=== PATIENT | female | born 1960 | race Caucasian/White ===

== ENCOUNTER 2020-06-24 20:40 | Observation (INO) ==
--- NOTE | 2020-06-24 20:56 | DR.SOBA ---
HPI Time Seen Time Seen by Provider: 06/24/20 20:56 HPI Comment HPI Comment: PATIENT IS 59YR OLD FEMALE IN ER WITH INCREASING SOB, COUGH AND CONGESTION TIMES 2 DAYS. WORSE TODAY. DENIES CONTACT WITH SICK PATIENT. NO FEVER OR CHEST PAIN. COUGH PRODUCTIVE, YELLOW SPUTUM. Complaints Chief Complaint Doctors Comments: COUGH, CONGESTION AND INCREASING SOB TIMES 2 DAYS COVID-19 Coronavirus risk:travel/contact w/high risk person: No Has patient experienced Coronavirus symptoms: Yes Coronavirus symptoms experienced: Coughing and Shortness of Breath Reviewed Nurses Notes Reviewed: Yes Source History Provided: Patient Mode of Arrival Mode of Arrival: Ambulatory Context Onset:: At Rest PE Risk Factors:: None History of:: None Currently on:: Neither Prehospital Care:: None Modifying Factors Worsens:: Exertion Improves:: Sitting Up Associated Signs and Symptoms Associated Signs and Symptoms: Nasal Congestion If Cough Cough: Productive and Yellow ROS Review of Systems Constitutional: No Symptoms Reported and See HPI; negative Fever, Weakness and Fatigue Eyes: No Symptoms Reported and See HPI ENTM: See HPI, Nose Discharge and Nose Congestion Respiratoy: See HPI, Productive Cough, Moist Cough and Short of Breath; negative Wheezing Cardiovascular: No Symptoms Reported and See HPI; negative Chest Pain and Edema Gastrointestinal/Abdominal: No Symptoms Reported and See HPI; negative Abdominal Pain, Diarrhea and Vomiting Genitourinary: No Symptoms Reported and See HPI; negative Dysuria, Frequency and Hematuria Neurological: See HPI and Headache; negative Weakness and Dizziness Musculoskeletal: No Symptoms Reported and See HPI; negative Back Pain and Muscle Pain Integumentary: No Symptoms Reported and See HPI; negative Change in Color, Rash and Juandice Hematologic/Lymphatic: No Symptoms Reported and See HPI; negative Easy Bruising and Swollen Glands Endocrine: No Symptoms Reported and See HPI; negative Increased Thirst and Increased Urine Psychiatric: No Symptoms Reported and See HPI All Other Systems: Reviewed and Negative PE Vital Signs Vitals: Temperature 98.1 F Pulse Rate [Left Radial] 111 Pulse Rate 107 Respiratory Rate 18 Blood Pressure [Left Arm] 148/84 Blood Pressure 154/99 O2 Sat by Pulse Oximetry 95 General Limitations: No Limitations General Appearance: Alert and In No Apparent Distress Head Head Exam: Normal Inspection and Atraumatic Eyes Eye exam: Normal Appearance and PERRL; negative Scleral Icterus and Conjunctival Injection ENT ENT Exam: Normal Exam, Normal Oropharynx, Normal External Ear Exam and TM's Normal Bilaterally Neck Neck Exam: Normal Inspection and Trachea Midline; negative Tenderness and Lymphadenopathy Chest Chest Inspection: Normal Inspection and Symmetric Chest Wall Rise; negative Tenderness Respiratory Respiratory Exam: Normal Lung Sounds Bilat; negative Accessory Muscle Use, Chest Wall Tenderness and Respiratory Distress Respiratory Exam: Bilateral: Rhonchi and Lower: Rhonchi Cardiovascular Cardiovascular Exam: Regular Rate, Normal Rhythm and Normal Heart Sounds; negative Systolic Murmur and Diastolic Murmur Abdominal Exam Abdominal Exam: Normal Inspection, Normal Bowel Sounds and Soft; negative Tenderness Extremities Extremities Exam: Normal Inspection and Normal Capillary Refill; negative Te nderness, Edema and Calf Tenderness Back Back Exam: Normal Inspection; negative (R) CVA Tenderness and (L) CVA Tenderness Neurologic Neurological Exam: Alert, Oriented X3 and CN II-XII Intact; negative Motor Sensory Deficit Psychiatric Psychiatric Exam: Normal Affect and Normal Mood Skin Skin Exam: Warm, Dry, Intact and Normal Color MDM Differential Diagnosis Differential Diagnosis: Bronchitis, Pneumonia, Pneumothorax, Respiratory Insufficiency, Sinusitis and URI COURSE Treatment Treatment: SEE ORDERS. DUO NEB, SOLUMEDROL 125MG IV, NS 100CC/HR AND FORTAZ 1GM IVPB. Education/Counseling Education/Counseling: Patient Educated On: Diagnosis and Needs for Follow Up ROR Labs Reviewed Laboratory Results Reviewed?: Yes Result Diagrams: 06/27/20 05:53 06/27/20 05:53 Laboratory: WBC 6.3 X10^3/uL (3.6-10.0) 06/24/20 21:09 RBC 3.31 X10^6/uL (3.5-5.4) L 06/24/20 21:09 Hgb 9.5 g/dL (12.0-16.0) L 06/24/20 21:09 Hct 30.1 % (36.0-47.0) L 06/24/20 21:09 MCV 90.9 fL (80.0-100.0) 06/24/20 21:09 MCH 28.9 pg (27.0-34.0) 06/24/20 21:09 MCHC 31.8 g/dL (33.0-35.0) L 06/24/20 21:09 RDW 15.4 % (11.6-16.5) 06/24/20 21:09 Plt Count 267 X10^3/uL (150.0-450.0) 06/24/20 21:09 MPV 6.1 fL (7.4-11.0) L 06/24/20 21:09 Neut % (Auto) 55.1 % (42.0-75.0) 06/24/20 21:09 Lymph % (Auto) 27.9 % (21.0-51.0) 06/24/20 21:09 [place] % (Auto) 10.1 % (0.0-13.0) 06/24/20 21:09 Eos % (Auto) 6.5 % (0.9-2.9) H 06/24/20 21:09 Baso % (Auto) 0.4 % (0.2-1.0) 06/24/20 21:09 Neut # (Auto) 3.5 x10^3/uL (2.2-4.8) 06/24/20 21:09 Lymph # (Auto) 1.8 X10^3/uL (1.3-2.9) 06/24/20 21:09 [place] # (Auto) 0.6 x10^3/uL (0.3-0.8) 06/24/20 21:09 Eos # (Auto) 0.4 x10^3/uL (0.0-0.2) H 06/24/20 21:09 Baso # (Auto) 0.0 X10^3/uL (0.0-0.1) 06/24/20 21:09 Absolute Nucleated RBC 0.1 /100WBC 06/24/20 21:09 Sample Site Lr 06/24/20 23:19 ABG pH 7.360 (7.35-7.45) 06/24/20 23:19 ABG pCO2 53.0 mmHg (35.0-45.0) H* 06/24/20 23:19 ABG pO2 53.0 mmHg (80.0-100.0) L 06/24/20 23:19 ABG HCO3 29.9 mmol/L (22-26) H 06/24/20 23:19 ABG O2 Saturation 86.0 % (90-100) L 06/24/20 23:19 ABG Base Excess 3.4 mmol/L (-2.0-2.0) H 06/24/20 23:19 [place]erson Test Pos 03/18/21 23:19 A-a Gradient 80.0 mmHg 06/24/20 23:19 FiO2 28 06/24/20 23:19 Blood Gas Comments Pina well ae 06/24/20 23:19 Sodium 142 mmol/L (136-145) 06/24/20 21:09 Corrected Sodium TNP 06/24/20 21:09 Potassium 5.6 mmol/L (3.5-5.1) H 06/24/20 21:09 Chloride 106 mmol/L (98-107) 06/24/20 21:09 Carbon Dioxide 30.5 mmol/L (21-32) 06/24/20 21:09 BUN 17 mg/dL (7-18) 06/24/20 21:09 Creatinine 1.60 mg/dL (0.55-1.02) H 06/24/20 21:09 Est GFR (MDRD) Af Amer 42 (>60) L 06/24/20 21:09 Est GFR (MDRD) Non-Af 35 (>60) L 06/24/20 21:09 Glucose 100 mg/dL (65-99) H 06/24/20 21:09 Calcium 9.3 mg/dL (8.5-10.1) 06/24/20 21:09 Corrected Calcium 10.2 mg/dL (8.5-10.1) H 06/24/20 21:09 Total Bilirubin 0.20 mg/dL (0.2-1.0) 06/24/20 21:09 AST 17 Units/L (15-37) 06/24/20 21:09 ALT 29 Units/L (12-78) 06/24/20 21:09 Alkaline Phosphatase 150 Units/L (46-116) H 06/24/20 21:09 Creatine Kinase 169 Units/L (26-192) 06/24/20 21:09 CK-MB (CK-2) 1.6 ng/mL (0-4.0) 06/24/20 21:09 CK/CKMB % Calc 1.0 % (<4) 06/24/20 21:09 Troponin I < 0.02 ng/mL (0-1.5) 06/24/20 21:09 B-Natriuretic Peptide 125 pg/mL (0-79) H 06/24/20 21:09 Total Protein 6.1 g/dL (6.4-8.2) L 06/24/20 21:09 Albumin 2.9 g/dL (3.4-5.0) L 06/24/20 21:09 Globulin 3.2 g/dL (2.5-4.5) 06/24/20 21:09 Albumin/Globulin Ratio 0.9 Ratio (1.1-2.1) L 06/24/20 21:09 Specimen Type Clean catch urine 06/25/20 01:15 Urine Color Straw (YELLOW) 06/25/20 01:15 Urine Appearance Clear (CLEAR) 06/25/20 01:15 Urine pH 7.0 (5.0 - 8.0) 06/25/20 01:15 Ur Specific [place] 1.010 (1.000-1.030) 06/25/20 01:15 Urine Protein Negative (NEGATIVE) 06/25/20 01:15 Urine Glucose (UA) Negative (NEGATIVE) 06/25/20 01:15 Urine Ketones Negative (NEGATIVE) 06/25/20 01:15 Urine Occult Blood 1+ (NEGATIVE) 06/25/20 01:15 Urine Nitrite Negative (NEGATIVE) 06/25/20 01:15 Urine Bilirubin Negative (NEGATIVE) 06/25/20 01:15 Urine Urobilinogen Normal (NORMAL) 06/25/20 01:15 Ur Leukocyte Esterase Negative (NEGATIVE) 06/25/20 01:15 Urine RBC None seen /HPF (0-3) 06/25/20 01:15 Urine WBC None seen /HPF (0-5) 06/25/20 01:15 Ur Squamous Epith Cells Few /HPF (NEGATIVE) 06/25/20 01:15 Urine Bacteria Trace /HPF (NEGATIVE) 06/25/20 01:15 Ur Culture Indicated? No/not indicated 06/25/20 01:15 SARS CoV-2 RNA Rapid RAMAKRISHNA Negative (NEGATIVE) 06/24/20 23:42 XRAY XRAY Interpreted by: Radiologist (REPORT NOTED AND DISCUSSED WITH PATIENT.) and Self EKG Rate: 109 [place]: Normal Rhythm: ST Block: None Hypertrophy: None ST: Old, Ant and Infarct Opioid Opioid Risk Tool Total: 0 Total Score Risk Category: Low Risk Copyright: Danie HERNÁNDEZ predicting aberrant behaviors Diagnosis Discharge Problem: Acute exacerbation of chronic obstructive pulmonary disease, Acute respiratory distress, SOBOE (shortness of breath on exertion) Instructions Instructions: Shortness of Breath, Adult, [id number] Chronic Obstructive Pulmonary Disease Exacerbation Acute Bronchitis, Adult, [id number] Levofloxacin tablets Methylprednisolone tablets Forms: Excuse From Work or School Precautions for COVID19 Patient Portal Social Distancing
[2020-06-24] MEDS ORDERED: DUONEB 0.5 MG/3 MG (3 mL) NEB ONE ×2 (20:57→20:59)
[2020-06-24] MEDS ORDERED: SOLU-Medrol 125 MG VIAL IVP ONE (20:59)
[2020-06-24 21:02] VITALS: BMI 31.8
[2020-06-24] MEDS ORDERED: SOLU-Medrol 125 MG VIAL ONE (21:06)
[2020-06-24 21:22] LABS: BASOPHILS % (AUTO) 0.4 % (0.2-1.0); EOSINOPHILS # (AUTO) 0.4 x10^3/uL (0.0-0.2); EOSINOPHILS % (AUTO) 6.5 % (0.9-2.9); HEMATOCRIT 30.1 % (36.0-47.0); HEMOGLOBIN 9.5 g/dL (12.0-16.0); LYMPHOCYTES # (AUTO) 1.8 X10^3/uL (1.3-2.9); LYMPHOCYTES % (AUTO) 27.9 % (21.0-51.0); MEAN CORPUSCULAR HEMOGLOBIN 28.9 pg (27.0-34.0); MEAN CORPUSCULAR HGB CONC 31.8 g/dL (33.0-35.0); MEAN CORPUSCULAR VOLUME 90.9 fL (80.0-100.0); MEAN PLATELET VOLUME 6.1 fL (7.4-11.0); MONOCYTES # (AUTO) 0.6 x10^3/uL (0.3-0.8); MONOCYTES % (AUTO) 10.1 % (0.0-13.0); NEUTROPHILS # (AUTO) 3.5 x10^3/uL (2.2-4.8); NEUTROPHILS % (AUTO) 55.1 % (42.0-75.0); PLATELET COUNT 267 X10^3/uL (150.0-450.0); RED BLOOD COUNT 3.31 X10^6/uL (3.5-5.4); RED CELL DISTRIBUTION WIDTH 15.4 % (11.6-16.5); WHITE BLOOD COUNT 6.3 X10^3/uL (3.6-10.0)
[2020-06-24 21:38] LABS: BLOOD UREA NITROGEN 17 mg/dL (7-18); CALCIUM 9.3 mg/dL (8.5-10.1); CARBON DIOXIDE 30.5 mmol/L (21-32); CHLORIDE 106 mmol/L (98-107); SODIUM 142 mmol/L (136-145); TROPONIN I < 0.02 ng/mL (0-1.5); eGFR NON BLACK RACES 35 (>60)
[2020-06-24 21:42] LABS: ALANINE AMINOTRANSFERASE 29 Units/L (12-78); ALBUMIN 2.9 g/dL (3.4-5.0); ALKALINE PHOSPHATASE 150 Units/L (46-116); ASPARTATE AMINO TRANSFERASE 17 Units/L (15-37); COR CA(FOR HYPOALB) 10.2 mg/dL (8.5-10.1); CREATINE KINASE 169 Units/L (26-192); CREATINE KINASE MB 1.6 ng/mL (0-4.0); TOTAL PROTEIN 6.1 g/dL (6.4-8.2)
--- NOTE | 2020-06-24 23:01 | RAD ---
PROCEDURE: Chest X-ray 1 View .HISTORY: Short of breath and wheezing.TECHNIQUE: PA view.COMPARISON: 04/14/2019.TECHNICAL QUALITY: Satisfactory .FINDINGS:Normal size heart .Mediastinum and hilar regions show no masses or lymphadenopathy .Normal central vascularity .No pulmonary consolidation, masses, pleural fluid, or pneumothorax .No acute bony abnormality .IMPRESSION:No active cardiopulmonary disease .Electronically signed by: Aman Hernandez (Jun 24, 2020 22:59:28)
[2020-06-24 23:25] LABS: ABG ALLEN TEST POS; ABG BASE EXCESS 3.4 mmol/L (-2.0-2.0); ABG HCO3 29.9 mmol/L (22-26)
[2020-06-25] MEDS ORDERED: DUONEB 0.5 MG/3 MG (3 mL) NEB ONE ×2 (00:59→04:29)
[2020-06-25] MEDS ORDERED: FORTAZ or TAZICEF VIAL INJ 1 G in NS 100 ML IV + SPIKE MINIBAG* 100 ML IV ONE (01:00)
[2020-06-25] MEDS ORDERED: SALINE 3% 15 ML NEB TX ONE (01:06)
[2020-06-25] MEDS ORDERED: SALINE 3% 15 ML NEB TX NEB ONE (01:10)
[2020-06-25] MEDS ORDERED: FORTAZ or TAZICEF VIAL INJ ONE (01:12)
[2020-06-25] MEDS ORDERED: NS 250 ML IV 250 ML IV ONE (01:12)
[2020-06-25] MEDS ORDERED: NS 100 ML IV + SPIKE MINIBAG* 100 ML IV ONE (01:16)
[2020-06-25 01:49] LABS: BILIRUBIN,URINE NEGATIVE (NEGATIVE); BLOOD/HEMOGLOBIN,URINE 1+ (NEGATIVE); GLUCOSE, URINE NEGATIVE (NEGATIVE); KETONES,URINE NEGATIVE (NEGATIVE); LEUKOCYTE ESTERASE ,URINE NEGATIVE (NEGATIVE); NITRITES,URINE NEGATIVE (NEGATIVE); PROTEIN,URINE NEGATIVE (NEGATIVE); UROBILINOGEN,URINE NORMAL (NORMAL)
[2020-06-25 02:07] LABS: APPEARANCE,URINE CLEAR (CLEAR); BACTERIA,URINE TRACE /HPF (NEGATIVE); COLOR,URINE STRAW (YELLOW); RBC,URINE NONE SEEN /HPF (0-3); SQUAMOUS EPITHELIAL CELL,UR FEW /HPF (NEGATIVE)
[2020-06-25] MEDS: DUONEB 0.5 MG/3 MG (3 mL) NEB SCH ×5 (04:43→20:57)
[2020-06-25] MEDS ORDERED: SOLU-Medrol 40 MG VIAL ONE (05:21)
[2020-06-25] MEDS ORDERED: SOLU-Medrol 40 MG VIAL IVP SCH (06:00)
[2020-06-25] MEDS ORDERED: PERCOCET TAB 5/325 MG PO SCH (08:00)
[2020-06-25] MEDS: PULMICORT NEB TX 0.5 MG NEB SCH ×2 (08:41→20:57)
[2020-06-25 08:49] LABS: ABG ALLEN TEST POS; ABG BASE EXCESS 4.3 mmol/L (-2.0-2.0); ABG HCO3 29.8 mmol/L (22-26)
[2020-06-25 08:51] LABS: BASOPHILS % (AUTO) 0.2 % (0.2-1.0); EOSINOPHILS % (AUTO) 0.1 % (0.9-2.9); HEMATOCRIT 29.4 % (36.0-47.0); HEMOGLOBIN 9.6 g/dL (12.0-16.0); LYMPHOCYTES # (AUTO) 0.6 X10^3/uL (1.3-2.9); MEAN CORPUSCULAR HEMOGLOBIN 29.5 pg (27.0-34.0); MEAN CORPUSCULAR HGB CONC 32.6 g/dL (33.0-35.0); MEAN CORPUSCULAR VOLUME 90.6 fL (80.0-100.0); MEAN PLATELET VOLUME 6.1 fL (7.4-11.0); MONOCYTES # (AUTO) 0 x10^3/uL (0.3-0.8); MONOCYTES % (AUTO) 0.6 % (0.0-13.0); NEUTROPHILS # (AUTO) 4.4 x10^3/uL (2.2-4.8); NEUTROPHILS % (AUTO) 87.1 % (42.0-75.0); PLATELET COUNT 274 X10^3/uL (150.0-450.0); RED BLOOD COUNT 3.24 X10^6/uL (3.5-5.4); RED CELL DISTRIBUTION WIDTH 15.4 % (11.6-16.5); WHITE BLOOD COUNT 5.1 X10^3/uL (3.6-10.0)
[2020-06-25 08:56] LABS: CALCIUM 9.2 mg/dL (8.5-10.1); CARBON DIOXIDE 29.7 mmol/L (21-32); CREATININE 1.56 mg/dL (0.55-1.02)
[2020-06-25] MEDS ORDERED: LASIX PO SCH (09:00)
[2020-06-25] MEDS ORDERED: KLONOPIN TAB 1 MG PO SCH (09:00)
--- NOTE | 2020-06-25 09:15 | DR.H&P ---
H&P History & Physical for Day of: H&P Date: 06/25/20 Chief Complaint Chief Complaint: shortness of breath, weakness Allergies Allergies Allergy/AdvReac Type Severity Reaction Status Date / Time No Known Drug Allergies Allergy Verified 06/25/20 00:43 History of Present Illness History of Present Illness: Ms. Vazquez is a 59 y/o female with a PMH of chronic anxiety, back pain, COPD and hypothyroidism presents with worsening dyspnea and cough. She states her shortness of breath had been worsening for the past few days. She uses 2L O2 at night and states she was checking her pulse OX and it had been in the 80s. She denies fever or chills. Denies body aches. She has dry cough. Denies GI Sx. No sick contact at home, no known exposure to COVID. Labs: WBC 5.1 Hgb 9.6 K: 5.6 BUN: 17 Cr: 1.56 (1.60) Na 141 Cl 105 Trop (-) BNP 125 CXR: no acute cardiopulmonary process ABG: suggestive of hypoxia and hypercapnia COVID-19 negative Patient received solumedrol, dose of Fortaz and duonebs. Plan: will increase solumedrol to 60 mg q8H, add Levaquin. Continue duonebs and pulmicort. Wean O2 as tolerated to keep sats > 92%. Add IS. Resume home medic ations. Add Kayexalate. Monitor AM labs and imaging. Past Medical History Past Medical History: Anxiety, Arthritis, COPD and Hypothyroidism Past Surgical History Surgical History: Appendectomy, Ortho Surgery, Thyroidectomy and Other Family History Family Medical History: Diabetes Mellitus and Hypertension Social History Does patient currently use any type of tobacco product: No Have you used tobacco products in the last 12 months: Yes Type of Tobacco Use: Cigarettes How many years tobacco product used: 35 Does any household member use tobacco: No Alcohol Use: Occasionally Drug Use: None Prescription drug monitoring program results: PDMP reviewed and no concerns identified Medications Home Medications: No Known Drug Allergies Allergy (Verified 06/25/20 00:43) CONTINUE taking the following medications albuterol sulfate 1 puff INHALATION Q4HR PRN 06/25/20 [History] amitriptyline 100 mg PO BID 06/25/20 [History] buspirone 15 mg PO BID 06/25/20 [History] calcium phos,dibas-vitamin D3 [Vitamin D (with calcium)] 1 tab PO DAILY 06/25/20 [History] clonazepam 1 mg PO BID 06/25/20 [History] furosemide 40 mg PO DAILY 06/25/20 [History] ipratropium-albuterol [Combivent Respimat] 1 puff INHALATION BID 06/25/20 [History] levothyroxine 150 mcg PO DAILY 06/25/20 [History] oxycodone-acetaminophen [Percocet] 1 tab PO TID 06/25/20 [History] tizanidine [Zanaflex] 4 mg PO HS 06/25/20 [History] Labs Result Diagrams: 06/25/20 08:39 06/25/20 08:39 Labs: 06/25/20 03:46 Sputum - Expectorated Sputum - Final Laboratory WBC 5.1 X10^3/uL (3.6-10.0) 06/25/20 08:39 RBC 3.24 X10^6/uL (3.5-5.4) L 06/25/20 08:39 Hgb 9.6 g/dL (12.0-16.0) L 06/25/20 08:39 Hct 29.4 % (36.0-47.0) L 06/25/20 08:39 MCV 90.6 fL (80.0-100.0) 06/25/20 08:39 MCH 29.5 pg (27.0-34.0) 06/25/20 08:39 MCHC 32.6 g/dL (33.0-35.0) L 06/25/20 08:39 RDW 15.4 % (11.6-16.5) 06/25/20 08:39 Plt Count 274 X10^3/uL (150.0-450.0) 06/25/20 08:39 MPV 6.1 fL (7.4-11.0) L 06/25/20 08:39 Neut % (Auto) 87.1 % (42.0-75.0) H 06/25/20 08:39 Lymph % (Auto) 12.0 % (21.0-51.0) L 06/25/20 08:39 [place] % (Auto) 0.6 % (0.0-13.0) 06/25/20 08:39 Eos % (Auto) 0.1 % (0.9-2.9) L 06/25/20 08:39 Baso % (Auto) 0.2 % (0.2-1.0) 06/25/20 08:39 Neut # (Auto) 4.4 x10^3/uL (2.2-4.8) 06/25/20 08:39 Lymph # (Auto) 0.6 X10^3/uL (1.3-2.9) L 06/25/20 08:39 [place] # (Auto) 0 x10^3/uL (0.3-0.8) L 06/25/20 08:39 Eos # (Auto) 0.0 x10^3/uL (0.0-0.2) 06/25/20 08:39 Baso # (Auto) 0.0 X10^3/uL (0.0-0.1) 06/25/20 08:39 Absolute Nucleated RBC 0.1 /100WBC 06/25/20 08:39 Sample Site [place] 06/25/20 08:40 ABG pH 7.410 (7.35-7.45) 06/25/20 08:40 ABG pCO2 47.0 mmHg (35.0-45.0) H 06/25/20 08:40 ABG pO2 82.0 mmHg (80.0-100.0) 06/25/20 08:40 ABG HCO3 29.8 mmol/L (22-26) H 06/25/20 08:40 ABG O2 Saturation 96.0 % (90-100) 06/25/20 08:40 ABG Base Excess 4.3 mmol/L (-2.0-2.0) H 06/25/20 08:40 [place] Test Pos 06/25/20 08:40 A-a Gradient 59.0 mmHg 06/25/20 08:40 FiO2 28.0 06/25/20 08:40 Blood Gas Comments Pina well ah 06/25/20 08:40 Sodium 141 mmol/L (136-145) 06/25/20 08:39 Corrected Sodium 143 mmol/L (136-145) 06/25/20 08:39 Potassium 5.6 mmol/L (3.5-5.1) H 06/25/20 08:39 Chloride 105 mmol/L (98-107) 06/25/20 08:39 Carbon Dioxide 29.7 mmol/L (21-32) 06/25/20 08:39 BUN 17 mg/dL (7-18) 06/25/20 08:39 Creatinine 1.56 mg/dL (0.55-1.02) H 06/25/20 08:39 Est GFR (MDRD) Af Amer 44 (>60) L 06/25/20 08:39 Est GFR (MDRD) Non-Af 36 (>60) L 06/25/20 08:39 Glucose 188 mg/dL (65-99) H 06/25/20 08:39 Calcium 9.2 mg/dL (8.5-10.1) 06/25/20 08:39 Corrected Calcium 10.2 mg/dL (8.5-10.1) H 06/24/20 21:09 Total Bilirubin 0.20 mg/dL (0.2-1.0) 06/24/20 21:09 AST 17 Units/L (15-37) 06/24/20 21:09 ALT 29 Units/L (12-78) 06/24/20 21:09 Alkaline Phosphatase 150 Units/L (46-116) H 06/24/20 21:09 Creatine Kinase 169 Units/L (26-192) 06/24/20 21:09 CK-MB (CK-2) 1.6 ng/mL (0-4.0) 06/24/20 21:09 CK/CKMB % Calc 1.0 % (<4) 06/24/20 21:09 Troponin I < 0.02 ng/mL (0-1.5) 06/24/20 21:09 B-Natriuretic Peptide 125 pg/mL (0-79) H 06/24/20 21:09 Total Protein 6.1 g/dL (6.4-8.2) L 06/24/20 21:09 Albumin 2.9 g/dL (3.4-5.0) L 06/24/20 21:09 Globulin 3.2 g/dL (2.5-4.5) 06/24/20 21:09 Albumin/Globulin Ratio 0.9 Ratio (1.1-2.1) L 06/24/20 21:09 Specimen Type Clean catch urine 06/25/20 01:15 Urine Color Straw (YELLOW) 06/25/20 01:15 Urine Appearance Clear (CLEAR) 06/25/20 01:15 Urine pH 7.0 (5.0 - 8.0) 06/25/20 01:15 Ur Specific [place] 1.010 (1.000-1.030) 06/25/20 01:15 Urine Protein Negative (NEGATIVE) 06/25/20 01:15 Urine Glucose (UA) Negative (NEGATIVE) 06/25/20 01:15 Urine Ketones Negative (NEGATIVE) 06/25/20 01:15 Urine Occult Blood 1+ (NEGATIVE) 06/25/20 01:15 Urine Nitrite Negative (NEGATIVE) 06/25/20 01:15 Urine Bilirubin Negative (NEGATIVE) 06/25/20 01:15 Urine Urobilinogen Normal (NORMAL) 06/25/20 01:15 Ur Leukocyte Esterase Negative (NEGATIVE) 06/25/20 01:15 Urine RBC None seen /HPF (0-3) 06/25/20 01:15 Urine WBC None seen /HPF (0-5) 06/25/20 01:15 Ur Squamous Epith Cells Few /HPF (NEGATIVE) 06/25/20 01:15 Urine Bacteria Trace /HPF (NEGATIVE) 06/25/20 01:15 Ur Culture Indicated? No/not indicated 06/25/20 01:15 SARS CoV-2 RNA Rapid RAMAKRISHNA Negative (NEGATIVE) 06/24/20 23:42 Review of Systems Constitutional: Weakness and Malaise Eyes: No Symptoms Reported ENT: No Symptoms Reported Respiratory: Cough, Dry, Shortness of Breath, SOB with Excertion and Wheezing Cardiovascular: No Symptoms Reported Gastrointestinal: No Symptoms Reported Genitourinary: No Symptoms Reported Musculoskeletal: Back Pain Skin: No Symptoms Reported Neurological: No Symptoms Reported Physical Exam Vital Signs: Temperature 97.7 F Pulse Rate [Left Radial] 83 Pulse Rate 108 Respiratory Rate 20 Blood Pressure [Left Arm] 138/85 Blood Pressure 154/99 O2 Sat by Pulse Oximetry 97 Oriented: Normal Eyes: Normal Ear: Normal Nose: Normal Throat: Normal Respiratory: Rhonchi Throughout and Wheezes Throughout Cardiovascular: Normal Auscultation: Bowel Sounds: Normal Palpation: Normal Tenderness: Normal Skin: Normal Musculoskeletal: Back:Thoracic, Back:Lumbar and Back:Paraspinous Psychiatric: Anxiety Mood Description: Calm Affect: Normal Speech Pattern: Clear and Appropriate Assessment/Plan (1) Acute respiratory failure with hypoxia and hypercapnia: Status: Acute (2) COPD exacerbation: Status: Acute (3) Hyperkalemia: Status: Acute (4) Anxiety: Status: Acute (5) DDD (degenerative disc disease): Qualifiers: Spinal region: lumbosacral Qualified Code(s): M51.37 - Other interve rtebral disc degeneration, lumbosacral region Status: Acute (6) CKD (chronic kidney disease): Qualifiers: Chronic kidney disease stage: unspecified stage Qualified Code(s): N18.9 - Chronic kidney disease, unspecified Status: Acute Review H&P Reviewed: Yes Patient was examined?: Yes
[2020-06-25] MEDS: BUSPAR PO SCH ×2 (09:39→20:59)
[2020-06-25] MEDS: CITRACAL + VITAMIN D PO SCH (09:40)
[2020-06-25] MEDS: ELAVIL PO SCH ×2 (09:41→20:59)
[2020-06-25] MEDS: LEVAQUIN PREMIX IV 750 MG 750 MG/150 ML BAG IV SCH (09:42)
[2020-06-25] MEDS: SOLU-Medrol 40 MG VIAL IVP SCH ×3 (09:48→20:59)
[2020-06-25] MEDS: SYNTHROID 150 mcg TAB PO SCH (09:51)
[2020-06-25] MEDS: PERCOCET TAB 5/325 MG PO PRN ×2 (09:53→21:00)
[2020-06-25] MEDS: KAYEXALATE SUSP PO SCH ×2 (10:00→21:00)
[2020-06-25] MEDS ORDERED: NS 1000 ML 1,000 ML IV SCH (10:00)
[2020-06-25] MEDS: LASIX PO SCH (11:00)
[2020-06-25] MEDS: KLONOPIN TAB 1 MG PO PRN ×2 (11:46→23:57)
[2020-06-25] MEDS: ZANAFLEX PO SCH (20:59)
[2020-06-26] MEDS: DUONEB 0.5 MG/3 MG (3 mL) NEB SCH ×6 (00:15→20:25)
[2020-06-26] MEDS: SOLU-Medrol 40 MG VIAL IVP SCH ×3 (05:19→21:44)
[2020-06-26] MEDS: PERCOCET TAB 5/325 MG PO PRN ×2 (05:19→20:33)
[2020-06-26 06:05] LABS: CALCIUM 9.4 mg/dL (8.5-10.1); CARBON DIOXIDE 28.8 mmol/L (21-32); CREATININE 1.61 mg/dL (0.55-1.02)
--- NOTE | 2020-06-26 06:05 | RAD ---
History: [Chest pain and dyspnea].Exam: Single portable view of the chest.Comparison: Chest radiograph dated July 15, 2018.Findings: The trachea is [midline]. The cardiomediastinal silhouette is [within normal limits]. There is [no evidence for CHF or pulmonary edema]. [There is no pneumothorax or mediastinal shift. The lungs are clear without consolidation, effusion, or pneumothorax]. The chest is hyperinflated with an increased AP dimension of the chest, diaphragmatic flattening, and central interstitial changes which would be compatible with changes of obstructive airways disease. Pulmonary arteries appear enlarged, unchanged from prior. No acute cardiopulmonary changes are seen. [No acute bony abnormalities are seen].Impression:1. No acute cardiopulmonary changes seen.2. Findings of obstructive airways disease.Electronically signed by: JOANN GEIGER III (Jun 26, 2020 06:03:32)
[2020-06-26 06:19] LABS: BASOPHILS % (AUTO) 0.2 % (0.2-1.0); HEMATOCRIT 28.8 % (36.0-47.0); HEMOGLOBIN 9.6 g/dL (12.0-16.0); LYMPHOCYTES # (AUTO) 0.7 X10^3/uL (1.3-2.9); LYMPHOCYTES % (AUTO) 8.3 % (21.0-51.0); MEAN CORPUSCULAR HEMOGLOBIN 31.6 pg (27.0-34.0); MEAN CORPUSCULAR HGB CONC 33.5 g/dL (33.0-35.0); MEAN CORPUSCULAR VOLUME 94.5 fL (80.0-100.0); MEAN PLATELET VOLUME 6.4 fL (7.4-11.0); MONOCYTES # (AUTO) 0.3 x10^3/uL (0.3-0.8); MONOCYTES % (AUTO) 3.9 % (0.0-13.0); NEUTROPHILS # (AUTO) 7.1 x10^3/uL (2.2-4.8); NEUTROPHILS % (AUTO) 87.6 % (42.0-75.0); PLATELET COUNT 289 X10^3/uL (150.0-450.0); RED BLOOD COUNT 3.05 X10^6/uL (3.5-5.4); RED CELL DISTRIBUTION WIDTH 15.3 % (11.6-16.5); WHITE BLOOD COUNT 8.1 X10^3/uL (3.6-10.0)
[2020-06-26] MEDS: PULMICORT NEB TX 0.5 MG NEB SCH ×2 (09:00→20:25)
[2020-06-26] MEDS: CITRACAL + VITAMIN D PO SCH (09:02)
[2020-06-26] MEDS: KAYEXALATE SUSP PO SCH ×2 (09:02→21:43)
[2020-06-26] MEDS: SYNTHROID 150 mcg TAB PO SCH (09:03)
[2020-06-26] MEDS: BUSPAR PO SCH ×2 (09:03→20:32)
[2020-06-26] MEDS: LASIX PO SCH (09:03)
[2020-06-26] MEDS: ELAVIL PO SCH ×2 (09:04→20:31)
[2020-06-26] MEDS: ZANAFLEX PO SCH (20:32)
[2020-06-26] MEDS: KLONOPIN TAB 1 MG PO PRN (20:33)
[2020-06-27] MEDS: DUONEB 0.5 MG/3 MG (3 mL) NEB SCH ×3 (00:03→08:58)
[2020-06-27] MEDS: SOLU-Medrol 40 MG VIAL IVP SCH (05:05)
[2020-06-27] MEDS: PERCOCET TAB 5/325 MG PO PRN (05:24)
[2020-06-27 06:13] LABS: BASOPHILS % (AUTO) 0.1 % (0.2-1.0); HEMATOCRIT 28.4 % (36.0-47.0); HEMOGLOBIN 9.3 g/dL (12.0-16.0); LYMPHOCYTES # (AUTO) 0.9 X10^3/uL (1.3-2.9); LYMPHOCYTES % (AUTO) 11.3 % (21.0-51.0); MEAN CORPUSCULAR HEMOGLOBIN 29.9 pg (27.0-34.0); MEAN CORPUSCULAR HGB CONC 32.9 g/dL (33.0-35.0); MEAN CORPUSCULAR VOLUME 90.8 fL (80.0-100.0); MEAN PLATELET VOLUME 6.2 fL (7.4-11.0); MONOCYTES # (AUTO) 0.3 x10^3/uL (0.3-0.8); MONOCYTES % (AUTO) 3.3 % (0.0-13.0); NEUTROPHILS # (AUTO) 7.1 x10^3/uL (2.2-4.8); NEUTROPHILS % (AUTO) 85.3 % (42.0-75.0); PLATELET COUNT 305 X10^3/uL (150.0-450.0); RED BLOOD COUNT 3.12 X10^6/uL (3.5-5.4); RED CELL DISTRIBUTION WIDTH 14.8 % (11.6-16.5); WHITE BLOOD COUNT 8.3 X10^3/uL (3.6-10.0)
[2020-06-27 06:22] LABS: CALCIUM 9.2 mg/dL (8.5-10.1); CARBON DIOXIDE 27.9 mmol/L (21-32); CREATININE 1.66 mg/dL (0.55-1.02)
[2020-06-27 06:44] LABS: BAND NEUTROPHILS % 3 % (0-10)
[2020-06-27 06:45] LABS: PLATELET MORPHOLOGY COMMENT NORMAL (NORMAL)
[2020-06-27] MEDS: LEVAQUIN PREMIX IV 750 MG 750 MG/150 ML BAG IV SCH (08:16)
[2020-06-27] MEDS: ELAVIL PO SCH (08:19)
[2020-06-27] MEDS: BUSPAR PO SCH (08:20)
[2020-06-27] MEDS: SYNTHROID 150 mcg TAB PO SCH (08:20)
[2020-06-27] MEDS: CITRACAL + VITAMIN D PO SCH (08:24)
[2020-06-27] MEDS: LASIX PO SCH (08:24)
[2020-06-27] MEDS: PULMICORT NEB TX 0.5 MG NEB SCH (08:58)
[2020-06-27 09:44] VITALS: BP 159/88
--- NOTE | 2020-07-21 10:12 | PCM.PROG ---
Progress Note - Progress Note for Day of Date of Exam: 06/26/20 - Subjective Subjective: IS BEING TREATED FOR ACUTE RESPIRATORY FAILURE WITH HYPOXIA AND HYPERCAPNIA, COPD EXACERBATION, HYPERKALEMIA. SHE HAS A PMH OF ANXIETY, DDD, CKD, AND HYPOTHYROIDISM. TODAY, SHE IS ALERT AND ORIENTED, LYING IN BED ON MORNING ROUNDS. SHE CONTINUES WITH COMPLAINTS OF SHORNTESS OF BREATH AND A PRODUCTIVE COUGH. SHE DOES REPORT SLIGHT IMPROVEMENT SINCE ADMISSION. SHE IS CURRENTLY UTILIZING OXYGEN VIA NASAL CANNULA AT 2 LITERS/MINUTE. ON EXAMINATION, HEART IS REGULAR IN RATE AND RHYTHM. BILATERAL LUNGS ARE NOTED WITH WHEEZING AND RHONCHI THROUGHOUT. ABDOMEN IS ROUND, SOFT, AND NON-TENDER WITH NORMAL BOWEL SOUNDS NOTED IN ALL QUADRANTS. HER VITALS THIS MORNING ARE: 97.8-84-18-95%-152/88. LABS WERE OBTAINED. ABNORMAL LAB VALUES INCLUDE THE FOLLOWING: RBC 3.05, HGB 9.6, HCT 28.8, BUN 25, CREATININE 1.61, GLUCOSE 129. A SPUTUM CULTURE IS PENDING. PRELIMINARY CULTURE REPORTS GROWTH OF GRAM NEGATIVE RODS. A CHEST XRAY WAS OBTAINED AND REVEALED: 1. No acute cardiopulmonary changes seen. 2. Findings of obstructive airways disease. WE WILL CONTINUE WITH SOLU-MEDROL, IV LEVAQUIN, DUONEBS, PULMICORT, AND CURRENT PLAN OF CARE TODAY. OTHERWISE, WE PLAN TO FOLLOW UP WITH AM LABS AND CHEST XRAY AND CONTINUE TO MONITOR. TIME SPENT ON CLINICAL ASSESSMENT, REVIEWING LABS AND IMAGING, DECISION MAKING, AND DOCUMENTATION GREATER THAN 45 MINUTES. - Past Medical Family Social History Past Med/Fam/Surg Hx: No changes since H&P Allergies: Allergies No Known Drug Allergies Allergy (Verified 06/25/20 00:43) - Review of Systems ROS: No change since H&P - Vital Signs and I&O's Vital Signs: Temperature 98.1 F Pulse Rate [Left Radial] 71 Pulse Rate 91 Respiratory Rate 20 Blood Pressure [Left Arm] 159/88 Blood Pressure 154/99 O2 Sat by Pulse Oximetry 97 - Physical Exam Oriented: Normal Eyes: Normal Ear: Normal Nose: Normal Throat: Normal Respiratory: Generalized, Wheezes, Rhonchi Cardiovascular: Normal Auscultation: Bowel Sounds: Normal Palpation: Normal Tenderness: Normal Skin: Normal Musculoskeletal: Back:Thoracic, Back:Lumbar, Back:Paraspinous Psychiatric: Anxiety Mood Description: Calm Affect: Normal Speech Pattern: Clear, Appropriate - Laboratory and Diagnostics Result Diagrams: 06/27/20 05:53 06/27/20 05:53 Labs: 06/25/20 03:46 Sputum - Expectorated Sputum Sputum Culture - Final Klebsiella Oxytoca 06/25/20 03:46 Sputum - Expectorated Sputum - Final Laboratory WBC 8.3 X10^3/uL (3.6-10.0) 06/27/20 05:53 RBC 3.12 X10^6/uL (3.5-5.4) L 06/27/20 05:53 Hgb 9.3 g/dL (12.0-16.0) L 06/27/20 05:53 Hct 28.4 % (36.0-47.0) L 06/27/20 05:53 MCV 90.8 fL (80.0-100.0) 06/27/20 05:53 MCH 29.9 pg (27.0-34.0) 06/27/20 05:53 MCHC 32.9 g/dL (33.0-35.0) L 06/27/20 05:53 RDW 14.8 % (11.6-16.5) 06/27/20 05:53 Plt Count 305 X10^3/uL (150.0-450.0) 06/27/20 05:53 Plt Count Comment Adequate (ADEQUATE) 06/27/20 05:53 MPV 6.2 fL (7.4-11.0) L 06/27/20 05:53 Neut % (Auto) 85.3 % (42.0-75.0) H 06/27/20 05:53 Lymph % (Auto) 11.3 % (21.0-51.0) L 06/27/20 05:53 [place] % (Auto) 3.3 % (0.0-13.0) 06/27/20 05:53 Eos % (Auto) 0.0 % (0.9-2.9) L 06/27/20 05:53 Baso % (Auto) 0.1 % (0.2-1.0) L 06/27/20 05:53 Neut # (Auto) 7.1 x10^3/uL (2.2-4.8) H 06/27/20 05:53 Lymph # (Auto) 0.9 X10^3/uL (1.3-2.9) L 06/27/20 05:53 [place] # (Auto) 0.3 x10^3/uL (0.3-0.8) 06/27/20 05:53 Eos # (Auto) 0.0 x10^3/uL (0.0-0.2) 06/27/20 05:53 Baso # (Auto) 0.0 X10^3/uL (0.0-0.1) 06/27/20 05:53 Absolute Nucleated RBC 0.1 /100WBC 06/27/20 05:53 Total Counted 100 06/27/20 05:53 Neutrophils % (Manual) 89 % (39-76) H 06/27/20 05:53 Band Neutrophils % 3 % (0-10) 06/27/20 05:53 Lymphocytes % (Manual) 5 % (13-43) L 06/27/20 05:53 Monocytes % (Manual) 3 % (4-9) L 06/27/20 05:53 Nucleated RBCs 1 06/27/20 05:53 Plt Morphology Comment Normal (NORMAL) 06/27/20 05:53 RBC Morphology Normal (NORMAL) 06/27/20 05:53 Sample Site Lrad 06/25/20 08:40 ABG pH 7.410 (7.35-7.45) 06/25/20 08:40 ABG pCO2 47.0 mmHg (35.0-45.0) H 06/25/20 08:40 ABG pO2 82.0 mmHg (80.0-100.0) 06/25/20 08:40 ABG HCO3 29.8 mmol/L (22-26) H 06/25/20 08:40 ABG O2 Saturation 96.0 % (90-100) 06/25/20 08:40 ABG Base Excess 4.3 mmol/L (-2.0-2.0) H 06/25/20 08:40 Herson Test Pos 06/25/20 08:40 A-a Gradient 59.0 mmHg 06/25/20 08:40 FiO2 28.0 06/25/20 08:40 Blood Gas Comments Pina well ah 06/25/20 08:40 Sodium 144 mmol/L (136-145) 06/27/20 05:53 Corrected Sodium 144 mmol/L (136-145) 06/27/20 05:53 Potassium 3.8 mmol/L (3.5-5.1) 06/27/20 05:53 Chloride 106 mmol/L (98-107) 06/27/20 05:53 Carbon Dioxide 27.9 mmol/L (21-32) 06/27/20 05:53 BUN 27 mg/dL (7-18) H 06/27/20 05:53 Creatinine 1.66 mg/dL (0.55-1.02) H 06/27/20 05:53 Est GFR (MDRD) Af Amer 41 (>60) L 06/27/20 05:53 Est GFR (MDRD) Non-Af 33 (>60) L 06/27/20 05:53 Glucose 116 mg/dL (65-99) H 06/27/20 05:53 POC Glucose (mg/dL) 112 mg/dL (65-99) H 06/26/20 05:33 Calcium 9.2 mg/dL (8.5-10.1) 06/27/20 05:53 Corrected Calcium 10.2 mg/dL (8.5-10.1) H 06/24/20 21:09 Total Bilirubin 0.20 mg/dL (0.2-1.0) 06/24/20 21:09 AST 17 Units/L (15-37) 06/24/20 21:09 ALT 29 Units/L (12-78) 06/24/20 21:09 Alkaline Phosphatase 150 Units/L (46-116) H 06/24/20 21:09 Creatine Kinase 169 Units/L (26-192) 06/24/20 21:09 CK-MB (CK-2) 1.6 ng/mL (0-4.0) 06/24/20 21:09 CK/CKMB % Calc 1.0 % (<4) 06/24/20 21:09 Troponin I < 0.02 ng/mL (0-1.5) 06/24/20 21:09 B-Natriuretic Peptide 125 pg/mL (0-79) H 06/24/20 21:09 Total Protein 6.1 g/dL (6.4-8.2) L 06/24/20 21:09 Albumin 2.9 g/dL (3.4-5.0) L 06/24/20 21:09 Globulin 3.2 g/dL (2.5-4.5) 06/24/20 21:09 Albumin/Globulin Ratio 0.9 Ratio (1.1-2.1) L 06/24/20 21:09 Specimen Type Clean catch urine 06/25/20 01:15 Urine Color Straw (YELLOW) 06/25/20 01:15 Urine Appearance Clear (CLEAR) 06/25/20 01:15 Urine pH 7.0 (5.0 - 8.0) 06/25/20 01:15 Ur Specific [place] 1.010 (1.000-1.030) 06/25/20 01:15 Urine Protein Negative (NEGATIVE) 06/25/20 01:15 Urine Glucose (UA) Negative (NEGATIVE) 06/25/20 01:15 Urine Ketones Negative (NEGATIVE) 06/25/20 01:15 Urine Occult Blood 1+ (NEGATIVE) 06/25/20 01:15 Urine Nitrite Negative (NEGATIVE) 06/25/20 01:15 Urine Bilirubin Negative (NEGATIVE) 06/25/20 01:15 Urine Urobilinogen Normal (NORMAL) 06/25/20 01:15 Ur Leukocyte Esterase Negative (NEGATIVE) 06/25/20 01:15 Urine RBC None seen /HPF (0-3) 06/25/20 01:15 Urine WBC None seen /HPF (0-5) 06/25/20 01:15 Ur Squamous Epith Cells Few /HPF (NEGATIVE) 06/25/20 01:15 Urine Bacteria Trace /HPF (NEGATIVE) 06/25/20 01:15 Ur Culture Indicated? No/not indicated 06/25/20 01:15 SARS CoV-2 RNA Rapid RAMAKRISHNA Negative (NEGATIVE) 06/24/20 23:42 - Plan (1) Acute respiratory failure with hypoxia and hypercapnia Status: Acute (2) COPD exacerbation Status: Acute (3) Hyperkalemia Status: Acute (4) Anxiety Status: Chronic (5) CKD (chronic kidney disease) Status: Chronic Qualifiers: Chronic kidney disease stage: unspecified stage (6) DDD (degenerative disc disease) Status: Chronic Qualifiers: Spinal region: unspecified cervical region Qualified Code(s): M50.30 - Other cervical disc degeneration, unspecified cervical region
== END 2020-06-27 10:30 | disposition home or self-care (01) ==
LOC: MED/SURG 20:41 → ER 20:41 → MED/SURG 06-25 01:59
PROVIDERS: ADMIT Internal Medicine; ATTEND Internal Medicine
DX: N18.9 Chronic kidney disease, unspecified; J96.01 Acute respiratory failure with hypoxia; R06.02 Shortness of breath; J96.02 Acute respiratory failure with hypercapnia; M51.37 Other intervertebral disc degeneration, lumbosacral region; Z20.822 Contact with and (suspected) exposure to COVID-19; R53.1 Weakness; E03.8 Other specified hypothyroidism; B96.89 Other specified bacterial agents as the cause of diseases classified elsewhere; E87.5 Hyperkalemia; F41.8 Other specified anxiety disorders; R94.31 Abnormal electrocardiogram [ECG] [EKG]; J44.1 Chronic obstructive pulmonary disease with (acute) exacerbation